=== PATIENT | female | born 1935 | race Caucasian/White ===

== ENCOUNTER 2016-11-05 08:21 | Inpatient (IN) ==
--- NOTE | 2016-11-04 21:16 | Discharge Summary ---
<Renea Zamora - Last Filed: 11/04/16 21:13> Date of Encounter: 11/04/16 - Discharge Diagnosis (1) Rotator cuff tear arthropathy of right shoulder Priority: Primary Status: Acute (2) Status post total replacement of right shoulder Priority: Primary Status: Acute (3) CAD (coronary artery disease) Priority: Secondary Status: Chronic Qualifiers: Coronary Disease-Associated Artery/Lesion type: unspecified vessel or lesion type Associated angina: without angina (4) HTN (hypertension) Priority: Secondary Status: Chronic Qualifiers: Hypertension type: essential hypertension Qualified Code(s): I10 - Essential (primary) hypertension (5) DMII (diabetes mellitus, type 2) Priority: Secondary Status: Chronic Qualifiers: Diabetes mellitus complication status: with neurologic complications Diabetes mellitus complication detail: with unspecified neuropathy Diabetes mellitus long-term insulin use: without termite inspector use Qualified Code(s): E11.40 - Type 2 diabetes mellitus with diabetic neuropathy, unspecified (6) Asthma Priority: Secondary Status: Chronic Qualifiers: Asthma severity: unspecified severity Asthma complication type: uncomplicated Qualified Code(s): J45.909 - Unspecified asthma, uncomplicated - Discharge Medications Home Medications: Cholecalciferol (D-3) [Vitamin D] 1,000 unit PO DAILY 11/29/14 [History] Gabapentin [Neurontin] 600 mg PO Q8H 11/29/14 [History] Lovastatin [Mevacor] 20 mg PO ONCE 11/29/14 [History] Montelukast [Singulair] 10 mg PO DAILY 11/29/14 [History] Omeprazole [PriLOSEC] 20 mg PO DAILY 11/29/14 [History] Valsartan [Diovan] 80 mg PO DAILY 11/29/14 [History] Albuterol Sulfate [Proair Hfa] 2 inh AER Q4H PRN 11/05/16 [History] Aspirin [Lo-Dose Aspirin EC] 81 mg PO ONCE 11/05/16 [History] Metformin HCl [Glucophage] 1,000 mg PO DAILY 11/05/16 [History] Tiotropium [Spiriva] 18 mcg IH ONCE 11/05/16 [History] Allergies/Adverse Reactions: Allergies No Known Allergies Allergy (Verified 11/29/14 14:27) Primary care physician: Nathen Blanc MD - Patient Status Disposition: Home Health Service Condition: Good - Discharge Instructions Follow Up With: Nathen Blanc MD [Primary Care Provider] - - Hospital Course Hospital course: Ms. Tripp is a 81 year old female - Time Spent with Patient Total time spent providing and/or coordinating discharge services: <Cosmo Guevara - Last Filed: 11/06/16 06:46> Date of Encounter: 11/06/16 Time of Encounter: 06:45 - Discharge Diagnosis (1) Colon cancer Priority: Secondary Status: Chronic Qualifiers: Colon location: unspecified part of colon Qualified Code(s): C18.9 - Malignant neoplasm of colon, unspecified (2) Rotator cuff tear arthropathy of right shoulder Priority: Primary Status: Chronic (3) CAD (coronary artery disease) Priority: Secondary Status: Chronic Qualifiers: Coronary Disease-Associated Artery/Lesion type: unspecified vessel or lesion type Associated angina: without angina (4) HTN (hypertension) Priority: Secondary Status: Chronic Qualifiers: Hypertension type: essential hypertension Qualified Code(s): I10 - Essential (primary) hypertension (5) DMII (diabetes mellitus, type 2) Priority: Secondary Status: Chronic Qualifiers: Diabetes mellitus complication status: with neurologic complications Diabetes mellitus complication detail: with unspecified neuropathy Diabetes mellitus termite inspector insulin use: without long-term use Qualified Code(s): E11.40 - Type 2 diabetes mellitus with diabetic neuropathy, unspecified (6) Asthma Priority: Secondary Status: Chronic Qualifiers: Asthma severity: unspecified severity Asthma complication type: uncomplicated Qualified Code(s): J45.909 - Unspecified asthma, uncomplicated (7) Status post total replacement of right shoulder Priority: Primary Status: Acute Primary care physician: Nathen Blanc MD - Patient Status Functional capacity at discharge: independent ambulation Overall status at discharge: patient is progressing back to baseline - Hospital Course Hospital course: Ms. Tripp is a 81 year old female Status post right total shoulder replacement. The patient had an uneventful postoperative course. They received antibiotics and physical therapy and were discharged in stable condition. There will follow-up in the office in 2 weeks. - Time Spent with Patient Total time spent providing and/or coordinating discharge services:
[2016-11-05] MEDS ORDERED: Famotidine 20 MG/2 ML VIAL IVP ONE (08:38)
[2016-11-05] MEDS ORDERED: Gabapentin 300 MG CAPSULE PO ONE (08:39)
[2016-11-05] MEDS ORDERED: CeFAZolin Pre 2,000 MG/100 ML 2,000 MG/100 ML BAG IVPB ONE (08:41)
[2016-11-05] MEDS ORDERED: Albuterol 2.5 MG/3 ML NEBULIZER IH ONE (08:41)
[2016-11-05] MEDS ORDERED: Lidocaine -MPF 1% 2 ML VIAL ID ONE (08:41)
[2016-11-05] MEDS ORDERED: Ringers Solution, Lactated 1,000 ML IVC SCH ×2 (08:45)
--- NOTE | 2016-11-05 08:46 | History & Physical Report ---
Date of Encounter: 11/05/16 Time of Encounter: 08:46 24 Hour HP Update - Instructions Instructions: If the History and Physical is less than 30 days old and was completed prior to A.M. admission and or procedure and has NOT been updated on calendar day of procedure please complete this update prior to performing procedure. - Update Patient reports changes in Medical Condition: No Changes in examination, assessment, or condition: No Changes in Medication: No Preop tests/diagnostics Reviewed: Yes Surgery Remains Indicated: Yes Consent for Planned Operative Procedure(s) Verified: Yes - Pre-Operative Checklist Preoperative Checklist Indicated: No Prophylactic Antibiotic Ordered: Yes Is VTE Prophylaxis Indicated?: Yes
[2016-11-05] MEDS ORDERED: Ondansetron 4 MG/2 ML VIAL ONE (09:06)
[2016-11-05] MEDS ORDERED: *HR* Propofol 200 MG/20 ML VIAL IVP ONE (09:06)
[2016-11-05] MEDS ORDERED: *HR* Succinylcholine 200 MG/10 ML VIAL IVP ONE (09:06)
[2016-11-05] MEDS ORDERED: Lidocaine -MPF 2% 2 ML VIAL ONE (09:06)
[2016-11-05] MEDS ORDERED: *HR* FentaNYL (PF) 100 MCG/2 ML VIAL ONE (09:06)
--- NOTE | 2016-11-05 09:29 | Anesthesia Evaluation PreOp ---
Date of Encounter: 11/05/16 Time of Encounter: 09:25 - Past History Planned Operation: Rt Total Shoulder Replacement Cardiac History: HTN, Hyperlipidemia, Cardiac Stent (Stent X1 2003), Other (CAD) Pulmonary History: COPD LUMP RECEIVER History: Denies Any Significant HX Other Medical History: Hepatic (Hep A resolved), Diabetes Type II, GERD Anesthesia History: No Prior Anesthetic Complications : No Alcohol Use: none Drug use: none Medications and Allergies Aspirin 81 mg PO DAILY 11/29/14 [History] Diovan 80 mg PO DAILY 11/29/14 [History] Glucophage 1,000 mg PO DAILY 11/29/14 [History] Mevacor 20 mg PO DAILY 11/29/14 [History] Neurontin 300 mg PO BID 11/29/14 [History] Omeprazole 20 mg PO DAILY 11/29/14 [History] Singulair 10 mg PO DAILY 11/29/14 [History] Vitamin B-12 1 tab PO DAILY 11/29/14 [History] Vitamin D 1,000 units PO DAILY 11/29/14 [History] OxyCODONE Immed Rel [Roxicodone 5 MG] 5 - 10 mg PO Q6HR PRN #40 tablet 11/04/16 [Rx] Allergies No Known Allergies Allergy (Verified 11/29/14 14:27) - Meds/Allergy Pre-op Review Medications Reviewed: Yes Allergies Reviewed: Yes Beta Blockers on Current Med List: No Anesthesia Results - Labs Laboratory Tests 10/26/16 10/26/16 14:25 14:25 Hgb 12.5 Hct 39.3 Plt Count 215 Sodium 141 Potassium 4.4 Carbon Dioxide 28 BUN 14 - Imaging EKG: report reviewed (SB) Anesthesia Exam O2 Sat Height 1.63 m Height 1.63 m Height 1.63 m Weight 68.039 kg Weight 68.039 kg Weight 68.039 kg O2 Sat by Pulse Oximetry 96 O2 Sat by Pulse Oximetry 96 Vital Signs Temp Pulse Resp BP Pulse Ox 97.8 F 55 18 149/63 96 11/05/16 08:42 11/05/16 08:42 11/05/16 08:42 11/05/16 08:42 11/05/16 08:42 Height: 5'4 Weight: 150 lbs NPO (# of Hours): MN Pain Scale: 0 - HEENT Pupil (Motor): Pupils equal, EOMI Mallampati: II Teeth: Edentulous Denture Type: Upper: Complete Oral Opening: Greater than 3 - LUMP RECEIVER LOC: Oriented LUMP RECEIVER Motor: Normal RUE, Normal LUE, Normal RLE, Normal LLE, Normal Face LUMP RECEIVER Sensory: Normal: RUE, LUE, RLE, LLE, Face - Cardiac Rhythm: Regular Murmur: None JVD: No Carotid Bruit: No - Pulmonary Breath Sounds: bilateral Clear Respiratory Effort: Symmetrical Anesthesia Assess/Plan ASA Score: 3 (CAD HTN COPD DM) Modified Gaurav Scale for Level of Consciousness: Cooperative, oriented, and tranquil Anesthetic Plan: General, Regional Monitoring Plan: Standard Monitors Recovery Plan: PACU (Discussed GA and RA, agrees to proceed)
[2016-11-05] MEDS ORDERED: *HR* Midazolam HCl 2 MG/2 ML VIAL ONE (09:58)
[2016-11-05] MEDS ORDERED: ROPIVACAINE HCL/PF 0.5% 30 ML VIAL ONE (10:01)
[2016-11-05] MEDS ORDERED: Tetracaine/PF 20 MG/2 ML AMPUL ONE (10:02)
[2016-11-05] MEDS ORDERED: *HR* FentaNYL (PF) 100 MCG/2 ML VIAL IVP PRN (10:26)
[2016-11-05] MEDS ORDERED: Ondansetron 4 MG/2 ML VIAL IVP ONE (10:26)
--- NOTE | 2016-11-05 10:32 | Anesthesia Procedures ---
Date of Encounter: 11/05/16 Time of Encounter: 10:20 Procedures: Anesthesia - Nerve Block Procedure Date: 11/05/16 Time: 10:20 Allergies/Adv Reactions: nka Pre-op Diagnosis: right shoulder arthropathy Surgical Procedure: right total shoulder Checklist: Correct Patient Identifier, Correct procedure, History checked ( time out with Dr dolan) Correct side: Right Blood Thinner: No Monitor Applied: EKG, BP, Pulse Oximetry Supplemental Oxygen via Nasal Cannula (L/min): 2 Sedation: Fentanyl (mcg): 100 Indication: Post Op Analgesia Pre-op Neuro Deficits: No Block Type: Supraclavicular Catheter placed: No Sterile Technique: Yes Ultrasound used: Yes Anatomy identified: Yes Visual spread of Local: Yes Neuro Stimulation: No Blood on Needle Aspiration: No Smooth Injection of Local: Yes Pain with Injection of Local: No Prep: Chlorhexadine Needle: 22 x 50 mm Stimuplex Local: 0.25% Bupivicaine w/Clonidine 20 mcg/cc (20 ml with bicep and supracervical), Ropivacaine (0.5 % 30 ml with tetracaine 20 mg for supraclavicular) Volume (cc): 50 ml total Number of Attempts: 1 Complications: None/effective block Vitals: 3 Vital Signs Time 1020 1025 BP 141/80 133/73 Pulse 55 55 Resp 16 14 O2 Sat 98 98
[2016-11-05] MEDS ORDERED: EPHEDrine 50 MG/ML VIAL ONE (10:47)
[2016-11-05] MEDS ORDERED: Lidocaine -MPF 4% 5 ML AMPUL ONE (11:07)
--- NOTE | 2016-11-05 11:21 | Orthopedic Operative Note ---
Date of procedure: 11/05/16 Pre-op diagnosis: Right shoulder cuff tear arthropathy Post-op diagnosis: same Procedure: Procedure: Right Total Shoulder Replacment Reverse, biceps tenodesis Estimated blood loss: 100 cc Hardware: Metal and polyethylene replacement: Arthrex small glenoid baseplate, 2 4.5 screws. 1 6.5 screw, 36+4 glenosphere, 6 humeral stem, poly insert 6 Exam Under anesthesia: Full motion no instability Procedural Notes: Irreparable tear supra-space tendon. Operative procedure: The patient was brought to the operating room and placed on the operating room table. After general anesthesia was administered the operative shoulder was examined. Findings were noted. The patient was placed in the modified beachchair position. All pressure points were padded appropriately. And the head was stabilized in the neutral position. The operative extremity was prepped and draped in the sterile surgical fashion. The patient received IV antibiotics prior to skin incision. A standard deltopectoral approach was made to the operative shoulder. Incision was made to the skin and subcutaneous tissue,hemo stasis was obtained with Bovie cautery. Using careful blunt dissection the cephalic vein was identified and mobilized medially. The deltopectoral interval was developed and the clavipectoral fascia was incised. The subscap was released off the lesser tuberosity and tagged with #2 FiberWire suture. The humerus was dislocated patient noted to have irreparable tear supraspinatus tendon, and the humeral cut was made along the anatomic neck. Anterior and posterior Bankart retractors were placed to expose the glenoid. The glenoid guide was seated and the centering hole was made. It was reamed with the appropriate reamer. The small baseplate was seated and secured with (2) 4.5 screws and one 6.5 screw. The baseplate was irrigated and dried and the 36+4 Glenosphere was seated and secured with the Graves taper. The Graves taper was tested and found to be secure the humerus was redislocated and prepared with the diaphyseal reamers, followed by a broaching process up to the appropriate size 6 in the patient's anatomic version. The metaphyseal reamer was then utilized. Trial reduction found the shoulder to be relocatable. Trial components were removed and drill holes were placed in the lesser tuberosity. They were filled with #5 FiberWire suture incorporating the biceps tendon. These sutures were used for a subscap repair and a biceps tenodesis. The appropriate 6 stem was impacted in place in the patient's anatomic version. Trial reduction found the shoulder to be relocatable and stable with the appropriate 6. Trial component was removed and the real implant was seated and secured the shoulder was reduced. The shoulder had excellent motion and excellent stability and no evidence of dislocation. The deep tissue was irrigated with pulse irrigation. The subscap was repaired incorporating the biceps tendon for biceps tenodesis and a subscap repair. The shoulder was closed by the PA. The deltopectoral interval was closed with a running #1 PDS suture, subcutaneous tissue was irrigated and closed with 0 PDS suture, the skin was closed with Dermabond. The patient was placed in a sterile dressing, abduction brace and extubated. The patient was then transferred to the recovery room in stable condition. Anesthesia: MILIND Surgeon: Cosmo Guevara Elastic Attacher Chainstitch: Renea Zamora Condition: stable Disposition: PACU
[2016-11-05 12:00] LABS: Hemoglobin 10.8 g/dL (11.5-15.4)
[2016-11-05] MEDS ORDERED: Sennosides 8.6 MG TABLET PO PRN (12:31)
[2016-11-05] MEDS ORDERED: Temazepam 15 MG CAPSULE PO PRN (12:31)
[2016-11-05] MEDS ORDERED: *HR* HYDROmorphone (PF) 1 MG/ML SYRINGE IVP PRN (12:31)
[2016-11-05] MEDS ORDERED: D5% in Water 1,000 ML IVC PRN (12:31)
[2016-11-05] MEDS ORDERED: Tiotropium 18 MCG inhalation IH SCH (12:31)
[2016-11-05] MEDS ORDERED: MOM Conc 10 ML UD.LIQ PO PRN (12:31)
[2016-11-05] MEDS ORDERED: Cholecalciferol (D-3) 1,000 UNIT TABLET PO SCH (12:31)
[2016-11-05] MEDS ORDERED: Aspirin Enteric Coated 81 MG Tablet PO SCH (12:31)
[2016-11-05] MEDS ORDERED: *HR* Dextrose 50 % in Water (Syg) 50 ML SYRINGE IVP PRN (12:31)
[2016-11-05] MEDS ORDERED: Ondansetron 4 MG/2 ML VIAL IVP PRN (12:31)
[2016-11-05] MEDS ORDERED: Naloxone 0.4 MG/ML INJ IVP PRN (12:31)
[2016-11-05] MEDS ORDERED: *HR* OxyCODONE Immed Rel 5 MG TABLET PO PRN (12:31)
[2016-11-05] MEDS ORDERED: Dextrose Gel 15 GM PO PRN ×2 (12:31)
[2016-11-05] MEDS: Gabapentin 300 MG CAPSULE PO SCH ×2 (13:32→21:16)
[2016-11-05] MEDS: Ringers Solution, Lactated 1,000 ML IVC SCH (13:32)
[2016-11-05] MEDS: Insulin LISPRO 300 UNITS/3 ML VIAL SQ SCH ×2 (13:39→16:53)
--- NOTE | 2016-11-05 16:30 | Anesthesia Evaluation Post Op ---
Date of Encounter: 11/05/16 Time of Encounter: 12:05 - Vital Signs Vital Signs: Vital Signs Temp Pulse Resp BP Pulse Ox 11/05/16 15:34 49 16 110/55 96 11/05/16 14:33 97.6 F 53 16 123/63 97 11/05/16 13:56 96.7 F L 50 18 126/60 95 11/05/16 13:24 97.4 F L 52 14 114/58 95 11/05/16 12:46 94 11/05/16 12:28 96.6 F L 52 14 121/64 95 11/05/16 12:08 97.3 F L 60 14 134/75 94 11/05/16 11:58 63 18 134/67 95 11/05/16 11:48 73 18 132/72 96 11/05/16 11:38 97.1 F L 78 14 127/67 98 11/05/16 10:24 59 16 133/73 98 11/05/16 10:07 62 13 141/80 96 11/05/16 09:06 18 149/63 96 11/05/16 08:42 97.8 F 55 18 149/63 96 Intake and Output 11/05/16 11/05/16 11/05/16 07:59 15:59 23:59 Intake Total 100 / 100 Output Total 101 / 101 Balance -1 / -1 Intake: IV Fluids 100 / 100 Ancef Premix 2,000 MG/100 100 / 100 ML 2,000 mg In 100 ml @ 200 mls/hr IVPB PREOP ONE Rx#:[id number] Output: Urine / Estimated Blood Loss 100 / 100 Other: Weight 68.039 kg Blood Glucose* 146 Patient Weight 11/05/16 23:59 Weight 68.039 kg - Lungs Lungs: Clear Ascult./Percussion - Airway Airway: Non-obstructed - Cardiovascular Baseline Rhythm - Mental Status Mental Status: Alert & Oriented, Answers Appropriately - Pain Pain Scale: 0 Pain Scale used: Numeric (1 - 10) - Nausea Vomiting Nausea Vomiting: Not Present - Hydration Hydration: Ice chips, Has not voided - Discharge PostOp Status: Transfer Patient to floor Anes Supervising Prov Stmt: Pt seen/evaluated, VSS and pt has met criteria for discharge to home. - MD Gail
[2016-11-05] MEDS: ceFAZolin 2,000 MG in D5% in Water 100 ML IVPB SCH (16:53)
[2016-11-05] MEDS: *HR* Enoxaparin 30 MG/0.3 ML SYRINGE SQ SCH (16:53)
[2016-11-05] MEDS ORDERED: *HR* Enoxaparin 30 MG/0.3 ML SYRINGE SQ SCH (18:00)
[2016-11-05] MEDS ORDERED: Insulin LISPRO 300 UNITS/3 ML VIAL SQ SCH (21:00)
[2016-11-06] MEDS: ceFAZolin 2,000 MG in D5% in Water 100 ML IVPB SCH (01:17)
[2016-11-06] MEDS: Ringers Solution, Lactated 1,000 ML IVC SCH (03:45)
[2016-11-06] MEDS: Gabapentin 300 MG CAPSULE PO SCH (04:13)
[2016-11-06 05:31] LABS: Hematocrit 33.7 % (35.3-44.9); Hemoglobin 10.8 g/dL (11.5-15.4)
[2016-11-06] MEDS: *HR* OxyCODONE Immed Rel 5 MG TABLET PO PRN ×2 (06:12→10:17)
[2016-11-06] MEDS: *HR* Enoxaparin 30 MG/0.3 ML SYRINGE SQ SCH (06:12)
[2016-11-06 06:46] VITALS: BP 107/47
--- NOTE | 2016-11-06 06:47 | Orthopedics Progress Note ---
Date of Encounter: 11/06/16 Time of Encounter: 06:46 - Assessment and Plan (1) Colon cancer Current Visit: No Status: Chronic Qualifiers: Colon location: unspecified part of colon Qualified Code(s): C18.9 - Malignant neoplasm of colon, unspecified (2) Rotator cuff tear arthropathy of right shoulder Current Visit: Yes Status: Chronic (3) CAD (coronary artery disease) Current Visit: Yes Status: Chronic Qualifiers: Coronary Disease-Associated Artery/Lesion type: unspecified vessel or lesion type [place] vs. transplanted heart: [place] heart Associated angina: angina presence unspecified Qualified Code(s): I25.10 - Atherosclerotic heart disease of [place] coronary artery without angina pectoris (4) HTN (hypertension) Current Visit: Yes Status: Chronic Qualifiers: Hypertension type: essential hypertension Qualified Code(s): I10 - Essential (primary) hypertension (5) DMII (diabetes mellitus, type 2) Current Visit: Yes Status: Chronic Qualifiers: Diabetes mellitus complication status: with neurologic complications Diabetes mellitus complication detail: with unspecified neuropathy Diabetes mellitus group home insulin use: without group home use Qualified Code(s): E11.40 - Type 2 diabetes mellitus with diabetic neuropathy, unspecified (6) Asthma Current Visit: Yes Status: Chronic Qualifiers: Asthma severity: unspecified severity Asthma complication type: uncomplicated Qualified Code(s): J45.909 - Unspecified asthma, uncomplicated (7) Status post total replacement of right shoulder Current Visit: Yes Status: Acute Subjective Interval history: Patient was seen this morning doing well without complaints. Afebrile vital signs stable. Operative extremity: Neurovascularly intact Dressing clean dry and intact Calves nontender Assessment and plan: Continue with postoperative care Hematocrit 33 discharged today Objective Vital signs: Vital Signs Temp Pulse Resp BP Pulse Ox 11/06/16 06:43 97.8 F 50 16 107/47 99 11/06/16 03:56 97.9 F 62 17 125/77 95 11/05/16 23:45 97.6 F 63 16 126/68 97 11/05/16 19:10 97.5 F L 63 18 148/76 98 11/05/16 16:55 16 110/55 94 11/05/16 15:34 49 16 110/55 96 11/05/16 14:33 97.6 F 53 16 123/63 97 11/05/16 13:56 96.7 F L 50 18 126/60 95 11/05/16 13:24 97.4 F L 52 14 114/58 95 11/05/16 12:46 94 11/05/16 12:28 96.6 F L 52 14 121/64 95 11/05/16 12:08 97.3 F L 60 14 134/75 94 11/05/16 11:58 63 18 134/67 95 11/05/16 11:48 73 18 132/72 96 11/05/16 11:38 97.1 F L 78 14 127/67 98 11/05/16 10:24 59 16 133/73 98 11/05/16 10:07 62 13 141/80 96 11/05/16 09:06 18 149/63 96 11/05/16 08:42 97.8 F 55 18 149/63 96 Intake and Output 11/05/16 11/05/16 11/06/16 15:59 23:59 07:59 Intake Total 100 / 100 400 / 400 1100 / 1100 Output Total 101 / 101 0 / 0 700 / 700 Balance -1 / -1 400 / 400 400 / 400 Intake: IV Fluids 100 / 100 1100 / 1100 Lactated Ringers 1,000 ML 1000 / 1000 @ 75 mls/hr IVC .[id number] [facility] Rx#:[id number] Ancef Premix 2,000 MG/100 100 / 100 ML 2,000 mg In 100 ml @ 200 mls/hr IVPB PREOP ONE Rx#:[id number] Ancef 2,000 MG In 100 / 100 Dextrose 5% 100 ML @ 200 mls/hr IVPB Q8H [facility] Rx#: [id number] Oral 400 / 400 Output: Urine 1 / 1 0 / 0 700 / 700 Estimated Blood Loss 100 / 100 Other: # Voids 1 Weight 68.039 kg 74.5 kg Blood Glucose* 146 244 Patient Weight 11/06/16 23:59 Weight 74.5 kg - Labs CBC & BMP: 11/06/16 04:09 Labs: Abnormal lab results Hgb 10.8 g/dL (11.5-15.4) L 11/06/16 04:09 Hct 33.7 % (35.3-44.9) L 11/06/16 04:09 POC Glucose 244 (58-89) H 11/05/16 20:33 - VTE Documentation of Mechanical Device: Venous foot pump, device Consult Discharge Plan - Plan Referrals: Nathen Blanc MD [Primary Care Provider] -
[2016-11-06] MEDS: Insulin LISPRO 300 UNITS/3 ML VIAL SQ SCH (08:10)
[2016-11-06] MEDS ORDERED: Tiotropium 18 MCG inhalation IH SCH (09:00)
[2016-11-06] MEDS ORDERED: Valsartan 80 MG TABLET PO SCH (09:00)
[2016-11-06] MEDS ORDERED: *HR* Metformin 500 MG TABLET PO SCH (09:00)
--- NOTE | 2016-11-06 11:53 | Event Note ---
Date of Encounter: 11/06/16 Time of Encounter: 11:13 PCR - POD#.1 Patient was discharged prior to rounds*
== END 2016-11-06 13:41 | disposition home health service (06) | DRG 483 ==
LOC: SAMDAY 08:21 → 3NENU 12:13
PROVIDERS: ADMIT Orthopaedic Surgery; ATTEND Orthopaedic Surgery

== ENCOUNTER 2018-03-12 07:43 | Inpatient (IN) ==
[2018-03-12] MEDS ORDERED: CeFAZolin Syr 2,000MG/20 ML 2,000 MG/20 ML SYRINGE IVPB ONE (07:56)
[2018-03-12] MEDS ORDERED: Albuterol 2.5 MG/3 ML NEBULIZER IH ONE (07:58)
[2018-03-12] MEDS ORDERED: Ringers Solution, Lactated 1,000 ML IVC SCH ×2 (08:00→12:10)
--- NOTE | 2018-03-12 08:02 | Anesthesia Evaluation PreOp ---
Date of Encounter: 03/12/18 Time of Encounter: 08:00 - Past History Planned Operation: Revision Right Total Shoulder Cardiac History: HTN, Hyperlipidemia, Cardiac Stent (x1 2004) Pulmonary History: COPD Other Medical History: Hepatic (Hep A resolved), Diabetes Type II, GERD, Other (colon CA) Anesthesia History: No Prior Anesthetic Complications, Past Anesthesia (R-TSR, colectomy, DINORAH, GB, L-ACL, hand sx x 2) : No Alcohol Use: none Drug use: none Medications and Allergies Cholecalciferol (D-3) [Vitamin D] 1,000 unit PO DAILY 11/29/14 [History] Gabapentin [Neurontin] 600 mg PO Q8H 11/29/14 [History] Lovastatin [Mevacor] 20 mg PO ONCE 11/29/14 [History] Montelukast [Singulair] 10 mg PO DAILY 11/29/14 [History] Omeprazole [PriLOSEC] 20 mg PO DAILY 11/29/14 [History] Albuterol Sulfate [Proair Hfa] 2 inh AER Q4H PRN 11/05/16 [History] Aspirin [Lo-Dose Aspirin EC] 81 mg PO ONCE 11/05/16 [History] Metformin HCl [Glucophage] 1,000 mg PO DAILY 11/05/16 [History] Tiotropium [Spiriva] 18 mcg IH ONCE 11/05/16 [History] Allergy/AdvReac Type Severity Reaction Status Date / Time No Known Allergies Allergy Verified 12/05/17 11:14 - Meds/Allergy Pre-op Review Medications Reviewed: Yes Allergies Reviewed: Yes Beta Blockers on Current Med List: No Anesthesia Results - Labs Laboratory Tests 02/28/18 02/28/18 02/28/18 15:10 15:10 15:10 WBC 7.6 Hgb 12.6 Hct 38.5 Plt Count 254 INR 1.0 Sodium 140 Potassium 4.4 Chloride 103 Carbon Dioxide 31 H BUN 18 Creatinine 1.09 - Imaging EKG: report reviewed (SB) Anesthesia Exam - HEENT Pupil (Motor): Pupils equal, EOMI Mallampati: II Teeth: Missing Denture Type: Upper: Complete Oral Opening: Greater than 3 - CLASSROOM COORDINATOR LOC: Oriented CLASSROOM COORDINATOR Motor: Normal RUE, Normal LUE, Normal RLE, Normal LLE, Normal Face CLASSROOM COORDINATOR Sensory: Normal: RUE, LUE, RLE, LLE, Face - Cardiac Rhythm: Regular Murmur: None JVD: No Carotid Bruit: No - Pulmonary Breath Sounds: bilateral Clear Respiratory Effort: Symmetrical Anesthesia Assess/Plan ASA Score: 3 Level of consciousness: Cooperative Anesthetic Plan: General, Regional Nerve Block Regional Nerve Block Plan: Supraclavicular Autologous Blood: Yes Monitoring Plan: Standard Monitors Recovery Plan: PACU
--- NOTE | 2018-03-12 08:12 | History & Physical Report ---
Date of Encounter: 03/12/18 Time of Encounter: 08:11 24 Hour HP Update - Instructions Instructions: If the History and Physical is less than 30 days old and was completed prior to A.M. admission and or procedure and has NOT been updated on calendar day of procedure please complete this update prior to performing procedure. - Update Patient reports changes in Medical Condition: No Changes in examination, assessment, or condition: No Changes in Medication: No Preop tests/diagnostics Reviewed: Yes Surgery Remains Indicated: Yes Consent for Planned Operative Procedure(s) Verified: Yes - Pre-Operative Checklist Preoperative Checklist Indicated: No Prophylactic Antibiotic Ordered: Yes Is VTE Prophylaxis Indicated?: Yes
[2018-03-12] MEDS ORDERED: Lidocaine -MPF 2% 2 ML VIAL ONE (08:33)
[2018-03-12] MEDS ORDERED: *HR* FentaNYL (PF) 100 MCG/2 ML VIAL ONE (08:33)
[2018-03-12] MEDS ORDERED: *HR* Succinylcholine 200 MG/10 ML VIAL IVP ONE (08:33)
[2018-03-12] MEDS ORDERED: Lidocaine -MPF 4% 5 ML AMPUL ONE (08:33)
[2018-03-12] MEDS ORDERED: *HR* Propofol 200 MG/20 ML VIAL IVP ONE (08:33)
[2018-03-12] MEDS ORDERED: Dexamethasone 4 MG/ML VIAL ONE ×2 (08:33→08:52)
[2018-03-12] MEDS ORDERED: Ondansetron 4 MG/2 ML VIAL ONE (08:33)
--- NOTE | 2018-03-12 08:50 | Discharge Summary ---
Orders not resulted at time of discharge: Pending orders 03/12/18 07:54 XR shoulder complete RT [XR] Routine H/H [Hemoglobin and Hematocrit] [HEME] Routine 03/12/18 07:59 US anesthesia pain block [US] Routine Date of Encounter: 03/13/18 Time of Encounter: 13:00 - Discharge Diagnosis (1) Status post reverse total arthroplasty of right shoulder Priority: Primary Status: Acute Comments: Opsite dressing, leave intact until first post-operative visit. Zipline in place, plan to remove at post-operative day #14-16. If dressing becomes >50% saturated, contact office, remove dressing and place appropriate dressing in its place. Do not allow for dressing to get wet. Shoulder Precautions x 6 weeks. Apply cold therapy wrap 3-6x/day for 20 minutes at a time. Encourage ambulation throughout the day. Use Incentive spirometer 10x/hour. Elevate affected extremity above heart as tolerated. NWB to affected upper extremity x 6 weeks. Will remove brace at first post-operative appointment. OK to remove during PT/OT and Home exercises. (2) Mechanical loosening of prosthetic shoulder joint Priority: Primary Status: Acute (3) COPD (chronic obstructive pulmonary disease) Priority: Secondary Status: Chronic Qualifiers: COPD type: unspecified COPD Qualified Code(s): J44.9 - Chronic obstructive pulmonary disease, unspecified (4) History of colon cancer Priority: Secondary Status: Chronic (5) Asthma Priority: Secondary Status: Chronic Qualifiers: Asthma severity: unspecified severity Asthma persistence: unspecified Asthma complication type: uncomplicated Qualified Code(s): J45.909 - Unspecified asthma, uncomplicated (6) CAD (coronary artery disease) Priority: Secondary Status: Chronic Qualifiers: Coronary Disease-Associated Artery/Lesion type: [place] artery [place] vs. transplanted heart: [place] heart Associated angina: angina presence unspecified Qualified Code(s): I25.10 - Atherosclerotic heart disease of [place] coronary artery without angina pectoris (7) DMII (diabetes mellitus, type 2) Priority: Secondary Status: Chronic Qualifiers: Diabetes mellitus long-term insulin use: without long-term use Diabetes mellitus complication status: with neurologic complications Diabetes mellitus complication detail: with unspecified neuropathy Qualified Code(s): E11.40 - Type 2 diabetes mellitus with diabetic neuropathy, unspecified (8) HTN (hypertension) Priority: Secondary Status: Chronic Qualifiers: Hypertension type: essential hypertension Qualified Code(s): I10 - Essential (primary) hypertension - Hospital Course Hospital course: Ms. Tripp is a 82 year old female ~status post Right TSR-revision 03/12. Patient had uneventful postoperative course. Stable for discharge. Patient seen at bedside, without complaints. A&O x 3 Afebrile, vital signs stable. Vital Signs Temp Pulse Resp BP Pulse Ox 03/13/18 11:20 99.3 F 63 17 105/64 94 03/13/18 11:17 16 93 03/13/18 08:22 98.5 F 59 16 111/56 93 03/13/18 05:06 98.4 F 65 14 122/64 91 03/13/18 00:42 97.4 F L 55 15 133/63 95 03/12/18 19:28 97.7 F 57 14 119/57 95 Intake and Output 03/12/18 03/13/18 03/13/18 23:59 07:59 15:59 Intake Total 200 / 200 240 / 240 Balance 200 / 200 240 / 240 Intake: IV Fluids 100 / 100 Ancef 2,000 MG In 0.9 % Sodium 100 / 100 Chloride 100 ML @ 200 mls/hr IVPB Q8HR JACOB Rx#:[id number] Oral 100 / 100 240 / 240 Other: Meal Dinner Breakfast Percent of Meal Consumed 100% 50% # Voids 1 1 1 Weight 72.1 kg Blood Glucose* 245 110 Patient Weight 03/13/18 23:59 Weight 72.1 kg Labs reviewed. H/H - stable, asymptomatic Short CBC 03/13/18 Range/Units 06:11 Hgb 11.2 L (11.5-15.4) g/dL Hct 34.3 L (35.3-44.9) % BMP 03/13/18 Range/Units 06:11 Sodium 139 (136-145) mEq/L Potassium 3.8 (3.5-5.1) mEq/L Chloride 105 (98-107) mEq/L Carbon Dioxide 27 (23-29) mEq/L BUN 15 (8-23) mg/dL Creatinine 1.06 (0.60-1.20) mg/dL Glucose 136 H (70-105) mg/dL Calcium 8.9 (8.6-10.3) mg/dL Pain control: adequate Participating in PT. All questions and concerns addressed. Educated on use of incentive spirometer. Encouraged ambulation and proper hydration. Patient educated on post-operative restrictions and post-operative care. Assessment and plan: Continue with postoperative care Discharge plan: Home with OP , discharge today. - Time Spent with Patient Total time spent providing and/or coordinating discharge services: - Discharge Medications Prescriptions: OxyCODONE Immed Rel [Roxicodone 5 MG] 5 mg PO Q6HR PRN 7 Days #28 tablet PRN Reason: Severe Pain Docusate [Colace] 100 mg PO BID 10 Days #20 capsule Home Medications: Cholecalciferol (D-3) [Vitamin D] 1,000 unit PO DAILY 11/29/14 [History] Gabapentin [Neurontin] 600 mg PO TID 11/29/14 [History] Lovastatin [Mevacor] 20 mg PO DAILY 11/29/14 [History] Montelukast [Singulair] 10 mg PO DAILY 11/29/14 [History] Omeprazole [PriLOSEC] 20 mg PO DAILY 11/29/14 [History] Albuterol Sulfate [Proair Hfa] 2 inh PO Q4H PRN 11/05/16 [History] Aspirin [Lo-Dose Aspirin EC] 81 mg PO DAILY 11/05/16 [History] Metformin HCl [Glucophage] 1,000 mg PO DAILY 11/05/16 [History] Tiotropium [Spiriva] 18 mcg IH DAILY 11/05/16 [History] Acetaminophen [Tylenol] 500 mg PO Q6HR PRN 03/12/18 [History] Docusate [Colace] 100 mg PO BID 10 Days #20 capsule 03/12/18 [Rx] Fluticasone Propionate Nasal [Flonase] 50 mcg NS DAILY 03/12/18 [History] Ibuprofen [Advil] 200 mg PO Q6H PRN 03/12/18 [History] Losartan Potassium 50 mg PO DAILY 03/12/18 [History] Magnesium Oxide [Mag-Oxide] 200 mg PO DAILY 03/12/18 [History] OxyCODONE Immed Rel [Roxicodone 5 MG] 5 mg PO Q6HR PRN 7 Days #28 tablet 03/12/18 [Rx] OxyCODONE Immed Rel [Roxicodone 5 MG] 5 mg PO Q6HR PRN 7 Days #28 tablet 03/12/18 [Rx] Allergies/Adverse Reactions: Allergy/AdvReac Type Severity Reaction Status Date / Time No Known Allergies Allergy Verified 03/12/18 09:00 Date of admission: 03/12 Primary care physician: Nathen Blanc MD Anticipated date of discharge: 03/13/18 - Patient Status Disposition: Home, Self-Care Condition: Good Functional capacity at discharge: independent ambulation Overall status at discharge: patient is progressing back to baseline - Discharge Instructions Follow Up With: Renea Zamora PAC [Physician Shipyard Painter] - 03/20/18 10:15 am Nathen Blanc MD [Primary Care Provider] - Additional Instructions: Discharge Instructions: Total Shoulder Please call [facility] ([phone]), your Primary Care Physician, or report to the Emergency Room if you have any of the following symptoms: Nausea, vomiting, fever greater that 101.5, swelling, chest pain, shortness of breath, increased pain/redness/drainage/odor for your incision site, numbness/tingling, or any other concerning symptoms. ACTIVITY: Always keep your arm in the sling. Do not raise your arm away from your body. Do not use your arm to help with getting in or out of bed. No weight bearing permitted. Only perform those exercises given to you by your therapist. Incentive Spirometer 10 times an hour. MEDICATIONS: Upon discharge resume your home medications. Take all the medications as prescribed. Take a stool softener if taking narcotic pain medications. Stool softeners are only effective if you drink enough fluids. Drink 6-8 glass of water or fluids a day, unless this is not allowed for another health problem. Despite using stool softeners, if you haven't had a bowel movement in 3 days, please switch to a gentle laxative. Gentle laxatives are kain d over the counter. You should have a bowel movement within 24 hours, if not call the office. You will be discharged from the hospital with a prescription for pain medication. You are encouraged to decrease the use of narcotic pain medication as tolerated. Should you require a refill, please call the office. [facility] prescribes narcotic pain medication for only 4-6 weeks after surgery. If you require pain medication beyond this time period, you may be referred to your Primary Care Physician or to the Pain Clinic for further evaluation. Plan ahead for refills on pain medication as many narcotics either need to be picked up at the office or mailed. It is best to call 48-72 hours in advance of needing a prescription refill so you don't run out of medication. To help control the post-operative pain, you may take NSAIDs (Aleve,Advil, Motrin, Ibuprofen, Naprosyn) or Tylenol as prescribed on the bottle in addition to the pain medication. WOUND CARE: Leave the dressing on for 7-10 days. You may change the dressing if it becomes saturated greater than 50%. Do not get the dressing wet at anytime. Wash your hands with antibacterial soap, rinse and dry prior to any wound care. If you have jessica the visiting nurse or rehab facility can remove the stapes 10-14 days after surgery and place steri-strips across the wound. Leave the steri-strips in place until they fall off on their own. You may let water from the shower run on top of the steri-strips. If you do not have a visiting nurse or rehab facility, you will need to return to the office at 10-14 days for the jessica to be removed. If you have itching or redness around the dressing call the office. FOLLOW-UP: Please follow up with your surgeon in the orthopedic clinic, as scheduled Opsite dressing, leave intact until first post-operative visit. Zipline in place, plan to remove at post-operative day #14-16. If dressing becomes >50% saturated, contact office, remove dressing and place appropriate dressing in its place. Do not allow for dressing to get wet. Shoulder Precautions x 6 weeks. Apply cold therapy wrap 3-6x/day for 20 minutes at a time. Encourage ambulation throughout the day. Use Incentive spirometer 10x/hour. Elevate affected extremity above heart as tolerated. NWB to affected upper extremity x 6 weeks. Will remove brace at first post-operative appointment. OK to remove during PT/OT and Home exercises.
[2018-03-12] MEDS ORDERED: ROPIVACAINE HCL/PF 0.5% 30 ML VIAL ONE (08:51)
[2018-03-12] MEDS ORDERED: Bupivacaine/Clonidine Syringe 1 EACH SYRINGE ONE (08:51)
[2018-03-12] MEDS ORDERED: Ethanol\\Acetic Acid\\Na Ace\\Ben 1,000 ML IRRIG.SOLN IR ONE (09:01)
--- NOTE | 2018-03-12 09:17 | Anesthesia Procedures ---
Date of Encounter: 03/12/18 Time of Encounter: 09:05 Procedures: Anesthesia - Nerve Block Procedure Date: 03/12/18 Time: 09:05 Surgical Procedure: right total shoulder Checklist: Correct Patient Identifier, Correct procedure, History checked Correct side: Right Blood Thinner: No Monitor Applied: EKG, BP, Pulse Oximetry Supplemental Oxygen via Nasal Cannula (L/min): 2 Sedation: Fentanyl (mcg): 100 Indication: Post Op Analgesia Block Type: Supraclavicular, Other (ICB/ICP) Catheter placed: No Sterile Technique: Yes Ultrasound used: Yes Anatomy identified: Yes Visual spread of Local: Yes Neuro Stimulation: No Blood on Needle Aspiration: No Smooth Injection of Local: Yes Pain with Injection of Local: No Prep: Chlorhexadine Needle: 22 x 50 mm Stimuplex Local: 0.25% Bupivicaine w/Clonidine 20 mcg/cc (15), Ropivacaine (0.5% with 8mg decadron 30ml) Volume (cc): 45 Number of Attempts: 1 Complications: None/effective block Vitals: Vital Signs/O2 Sat, Most Current Temp Pulse Resp BP Pulse Ox 98.1 F 63 16 139/71 96 03/12/18 08:35 03/12/18 09:05 03/12/18 09:05 03/12/18 09:05 03/12/18 09:05
[2018-03-12] MEDS ORDERED: *HR* Phenylephrine 10 MG/ML VIAL ONE (09:38)
[2018-03-12] MEDS ORDERED: *HR* HYDROmorphone (PF) 1 MG/ML SYRINGE IVP PRN (09:52)
[2018-03-12] MEDS ORDERED: *HR* Promethazine 25 MG/ML VIAL IVP PRN (09:52)
--- NOTE | 2018-03-12 10:38 | Orthopedic Operative Note ---
Date of procedure: 03/12/18 Pre-op diagnosis: Painful right reverse shoulder. Post-op diagnosis: same Procedure: Procedure: Right Revision Total Shoulder replacement reverse Estimated blood loss: 100 cc Hardware: Arthrex: 24, +2, 25 mm, base plate, 8 humeral stem, +6 Meghna, 4 locki ng 5.5 screws, 39+4 sphere Procedural Notes: Aseptic loosening humeral component. Operative procedure: The patient was brought to the operating room and placed on the operating room table. The patient was placed in the modified beachchair position. All pressure points were padded appropriately. And the head was stabilized in the neutral position. The operative extremity was prepped and draped in the sterile surgical fashion. The patient received IV antibiotics prior to skin incision. A standard deltopectoral approach was made to the operative shoulder. Incision was made to the skin and subcutaneous tissue,hemo stasis was obtained with Bovie cautery. Using careful blunt dissection the cephalic vein was identified and mobilized medially. The deltopectoral interval was developed and the clavipectoral fascia was incised. An extensive debridement was performed, and the shoulder was dislocated. Using an osteotome to clear out the soft tissue, the humeral component was gently removed. Anterior and posterior Bankart retractors were used to expose the glenoid, the glenoid component was removed without incident. First the glenosphere was disengaged, and the screws removed from the baseplate, and finally the baseplate was removed without significant bone loss. The glenoid guide was seated the centering hole was made the glenoid was reamed with the appropriate reamer. The glenoid baseplate 24, +2, 25 mm screw was seated and secured and locked in place with the 5.5 locking screws 4. The baseplate was irrigated and dried 39+4 glenosphere was seated and secured. Atte ntion was then turned to the humeral side. The humerus was reamed and broached up to its appropriate size 8 in 20 degrees of retroversion. Trial reduction found the shoulder to be relocatable. Trial components were removed, real implants were seated. Trial reduction found the shoulder to be stable with the appropriate implants 6 Meghna. The trial implants were removed the real implants were seated and secured in the shoulder was reduced. The patient had excellent motion and excellent stability no shuck. The deep tissue was irrigated with pulse irrigation deltopectoral interval was closed with #2 PDS by the PA. Superficially the subcutaneous tissue was closed with 0 PDS suture, the skin was closed with Dermabond. The patient placed sterile dressing, postoperative brace extubated and transferred to the recovery room in stable condition. Anesthesia: GETA Surgeon: Cosmo Guevara Was there an clinical nursing assistant present: Yes Cobbler Upper: Renea Zamora Estimated blood loss (cc): 100 Condition: stable Disposition: PACU
[2018-03-12 11:09] LABS: Hematocrit 35.6 % (35.3-44.9); Hemoglobin 11.7 g/dL (11.5-15.4)
--- NOTE | 2018-03-12 11:09 | Anesthesia Evaluation Post Op ---
Date of Encounter: 03/12/18 Time of Encounter: 11:09 - Vital Signs Vital Signs: Vital Signs/O2 Sat, Most Current Temp Pulse Resp BP Pulse Ox 97.9 F 65 17 149/75 93 03/12/18 10:44 03/12/18 11:04 03/12/18 11:04 03/12/18 11:04 03/12/18 11:04 - Lungs Lungs: Clear Ascult./Percussion - Airway Airway: Non-obstructed - Cardiovascular Regular Rate - Mental Status Mental Status: Alert & Oriented, Answers Appropriately - Pain Pain Scale: 0 Pain Scale used: Numeric (1 - 10) - Nausea Vomiting Nausea Vomiting: Not Present - Hydration Hydration: Ice chips, Has not voided - Discharge PostOp Status: Transfer Patient to floor
[2018-03-12] MEDS ORDERED: Naloxone 0.4 MG/ML INJ IVP PRN (12:10)
[2018-03-12] MEDS ORDERED: Temazepam 15 MG CAPSULE PO PRN (12:10)
[2018-03-12] MEDS ORDERED: Dextrose Gel 15 GM/37.5 ML TUBE PO PRN ×2 (12:10)
[2018-03-12] MEDS ORDERED: D5% in Water 1,000 ML IVC PRN (12:10)
[2018-03-12] MEDS ORDERED: Ondansetron 4 MG/2 ML VIAL IVP PRN (12:10)
[2018-03-12] MEDS ORDERED: MOM Conc 10 ML UD.LIQ PO PRN (12:10)
[2018-03-12] MEDS ORDERED: *HR* OxyCODONE/APAP 5/325 TABLET PO PRN (12:10)
[2018-03-12] MEDS ORDERED: Sennosides 8.6 MG TABLET PO PRN (12:10)
[2018-03-12] MEDS ORDERED: traMADol 50 MG TABLET PO PRN (12:10)
[2018-03-12] MEDS ORDERED: *HR* Dextrose 50 % in Water (Syg) 50 ML SYRINGE IVP PRN (12:10)
[2018-03-12] MEDS: Insulin LISPRO 300 UNITS/3 ML VIAL SQ SCH ×2 (16:00→17:07)
[2018-03-12] MEDS: Aspirin Enteric Coated 81 MG Tablet PO SCH (17:06)
[2018-03-12] MEDS: Gabapentin 300 MG CAPSULE PO SCH ×2 (17:06→22:44)
[2018-03-12] MEDS: *HR* Enoxaparin 30 MG/0.3 ML SYRINGE SQ SCH (17:08)
[2018-03-12] MEDS ORDERED: *HR* Enoxaparin 30 MG/0.3 ML SYRINGE SQ SCH (18:00)
[2018-03-12] MEDS ORDERED: Insulin LISPRO 300 UNITS/3 ML VIAL SQ SCH (21:00)
[2018-03-13] MEDS: *HR* OxyCODONE Immed Rel 5 MG TABLET PO PRN ×2 (05:54→09:46)
[2018-03-13] MEDS: *HR* Enoxaparin 30 MG/0.3 ML SYRINGE SQ SCH (05:54)
[2018-03-13 07:00] LABS: Hematocrit 34.3 % (35.3-44.9); Hemoglobin 11.2 g/dL (11.5-15.4)
[2018-03-13 07:27] LABS: BUN/Creatinine Ratio 14 (6-26); Blood Urea Nitrogen 15 mg/dL (8-23); Calcium 8.9 mg/dL (8.6-10.3); Carbon Dioxide 27 mEq/L (23-29); Chloride 105 mEq/L (98-107); Glucose 136 mg/dL (70-105); Osmolality,Calculated 291 (280-300); Potassium 3.8 mEq/L (3.5-5.1); Sodium 139 mEq/L (136-145); eGFR For Non-African Americans 50 (> 60)
[2018-03-13] MEDS: Insulin LISPRO 300 UNITS/3 ML VIAL SQ SCH ×2 (07:59→12:46)
[2018-03-13] MEDS ORDERED: Fluticasone Propionate Nasal 50 MCG/SPRAY BOTTLE NS SCH (09:00)
[2018-03-13] MEDS ORDERED: *HR* Metformin 500 MG TABLET PO SCH (09:00)
[2018-03-13] MEDS ORDERED: Cholecalciferol (D-3) 1,000 UNIT TABLET PO SCH (09:00)
[2018-03-13] MEDS ORDERED: Magnesium Oxide 400 MG TABLET PO SCH (09:00)
[2018-03-13] MEDS: Aspirin Enteric Coated 81 MG Tablet PO SCH (09:44)
[2018-03-13] MEDS: Gabapentin 300 MG CAPSULE PO SCH (09:45)
[2018-03-13] MEDS ORDERED: Tiotropium 18 MCG inhalation IH SCH (10:00)
--- NOTE | 2018-03-13 10:47 | Orthopedics Progress Note ---
Date of Encounter: 03/13/18 Time of Encounter: 10:46 Subjective Interval history: Patient was seen this morning doing well without complaints. Afebrile vital signs stable. Operative extremity: Neurovascularly intact Dressing clean dry and intact Calves nontender Assessment and plan: Continue with postoperative care Discharged today Objective Vital signs: Vital Signs Temp Pulse Resp BP Pulse Ox 03/13/18 08:22 98.5 F 59 16 111/56 93 03/13/18 05:06 98.4 F 65 14 122/64 91 03/13/18 00:42 97.4 F L 55 15 133/63 95 03/12/18 19:28 97.7 F 57 14 119/57 95 03/12/18 11:31 97.5 F L 56 16 131/69 93 03/12/18 11:14 98.1 F 61 18 147/70 93 03/12/18 11:04 65 17 149/75 93 03/12/18 10:54 64 14 140/70 93 Intake and Output 03/12/18 03/13/18 03/13/18 23:59 07:59 15:59 Intake Total 200 / 200 240 / 240 Balance 200 / 200 240 / 240 Intake: IV Fluids 100 / 100 Ancef 2,000 MG In 0.9 % Sodium 100 / 100 Chloride 100 ML @ 200 mls/hr IVPB Q8HR JACOB Rx#:[id number] Oral 100 / 100 240 / 240 Other: Meal Dinner Breakfast Percent of Meal Consumed 100% 50% # Voids 1 1 1 Weight 72.1 kg Blood Glucose* 245 110 Patient Weight 03/13/18 23:59 Weight 72.1 kg - Labs CBC & BMP: 03/13/18 06:11 03/13/18 06:11 Labs: Abnormal lab results Hgb 11.2 g/dL (11.5-15.4) L 03/13/18 06:11 Hct 34.3 % (35.3-44.9) L 03/13/18 06:11 Est GFR (Non-Af Amer) 50 (> 60) L 03/13/18 06:11 Glucose 136 mg/dL (70-105) H 03/13/18 06:11 POC Glucose 139 mg/dL (70-99) H 03/12/18 08:32 Consult Discharge Plan - Plan Referrals: Nathen Blanc MD [Primary Care Provider] - Prescriptions: Docusate [Colace] 100 mg PO BID 10 Days #20 capsule OxyCODONE Immed Rel [Roxicodone 5 MG] 5 mg PO Q6HR PRN 7 Days #28 tablet PRN Reason: Severe Pain
[2018-03-13 11:21] VITALS: BP 105/64
== END 2018-03-13 13:52 | disposition home or self-care (01) | DRG 483 ==
LOC: SAMDAY 07:43 → 3NENU 11:29
PROVIDERS: ADMIT Orthopaedic Surgery; ATTEND Orthopaedic Surgery